=== PATIENT | male | born 1995 | race Caucasian/White ===

== ENCOUNTER 2017-12-05 16:17 | Emergency (ER) | payer BC ==
[2017-12-05 16:22] VITALS: BP 132/80
--- NOTE | 2017-12-05 17:35 | ED Physician Documentation ---
PD HPI UPPER EXT INJURY - Stated complaint Stated Complaint: FINGER LAC - Chief complaint Chief Complaint: Laceration - History obtained from History obtained from: Patient - History of Present Illness Location: Right, Finger (ring) Type of injury: Laceration (cut on edge of tile piece. Bled briskly and was not sure if piece of tile in wound as felt sharp. He just wrapped it and came to ED. ) Where injury occurred: Work Timing - onset: Today (just [employer]) Timing - details: Abrupt onset Worsened by: Palpating Associated symptoms: No: Weakness, Numbness Similar symptoms before: Has not had sx before Recently seen: Not recently seen Review of Systems Constitutional: denies: Fever, Chills Neurologic: denies: Focal weakness, Numbness, Near syncope PD PAST MEDICAL HISTORY - Past Medical History Cardiovascular: None Respiratory: None Neuro: None Endocrine/Autoimmune: None - Present Medications Home Medications: Ambulatory Orders Medication Instructions Recorded Confirmed Insulin Regular, Human [Humulin R] unit SUBQ 12/05/17 Sertraline [Zoloft] 25 mg PO DAILY 12/05/17 12/05/17 - Allergies Allergies/Adverse Reactions: Allergies Allergy/AdvReac Type Severity Reaction Status Date / Time lamotrigine Allergy Hallucinati Verified 12/05/17 16:22 ons PD ED PE NORMAL - Vitals Vital signs reviewed: Yes - General General: Alert and oriented X 3, No acute distress, Well developed/nourished - Derm Derm: Normal color, Warm and dry - Extremities Extremities: Other (ring finger end with 1.5 cm laceration at tip, not involving nailbed, and does not corss DIP crease. To fatty tissue and no FB seen in bloodless field. ) - Neuro Neuro: No motor deficit, No sensory deficit Results - Vitals Vitals: Oxygen O2 Source Room air PD MEDICAL DECISION MAKING - ED course Complexity details: considered differential (not too deep nor long and does not cross IP joint, so can close with tape and glue. ), d/w patient Departure - Departure Disposition: 01 Home, Self Care Clinical Impression: Finger laceration Qualifiers: Encounter type: initial encounter Finger: ring finger Damage to nail status: without damage Foreign body presence: without foreign body Laterality: right Qualified Code(s): S61.214A - Laceration without foreign body of right ring finger without damage to nail, initial encounter Condition: Stable Record reviewed to determine appropriate education?: Yes Instructions: ED Laceration All Comments: Keep the area clean and dry. Allow the Steri-Strips to fall off on their own after several days. Then routine wound care of cleaning with soap and water and applying ointment until it fully heals. Recheck if signs of infection. Tylenol or ibuprofen if needed for pain. I did not see any foreign bodies or pieces of tile in there. Discharge Date/Time: 12/05/17 17:57
== END 2017-12-05 17:57 | disposition home or self-care (01) ==
LOC: ED 16:17
DX: S61.214A Laceration without foreign body of right ring finger without damage to nail, initial encounter (principal); W26.8XXA Contact with other sharp object(s), not elsewhere classified, initial encounter; Y99.0 Civilian activity done for income or pay
CPT/HCPCS: 99282